=== PATIENT | male | born 1960 | race African-American/Black ===

== ENCOUNTER 2017-06-03 17:35 | Emergency (ER) | payer OTHER ==
[~2017-06-03] VITALS: Ht 172.7 cm; Wt 117.9 kg
[2017-06-03] MEDS ORDERED: ASPIRIN81 MG ORAL (17:52)
[2017-06-03] MEDS ORDERED: NORVASC10 MG ORAL (17:52)
[2017-06-03] MEDS ORDERED: Ketorolac 30mg Inj IM ONE (18:15)
[2017-06-03] MEDS ORDERED: IBUPROFEN600 MG ORAL (19:01)
[2017-06-03] MEDS ORDERED: ACETAMINOPHEN-1 EAC1 ORAL (19:01)
[2017-06-03 19:05] VITALS: BP 147/80
--- NOTE | 2017-06-03 21:16 | Emergency Room Report ---
History of Present Illness General Chief Complaint: Lower Extremity Injury Source: Patient Present Illness HPI Patient is a 57-year-old male presenting for right knee pain which began approximately 1 week prior for no known reason. He denies any injury. Pain is an 8 out of 10 throbbing sensation does not radiate. Worse with movement and touch. He has tried Aleve and Tylenol which somewhat helps. He denies any other symptoms including fever, chills, rash He denies history of gout Allergies: Coded Allergies: No Known Allergies (Unverified , 06/03/17) Patient History Past Medical History: see triage record Pertinent Family History: none Reviewed Nursing Documentation: PMH: Agreed; PSxH: Agreed Nursing Documentation-PMH Past Medical History: No History, Except For Hx Hypertension: Yes Review of Systems All Other Systems: negative except mentioned in HPI Physical Exam Vital Signs Date Time Temp Pulse Resp B/P (MAP) Pulse Ox O2 Delivery O2 Flow Rate FiO2 06/03/17 17:45 97.5 77 18 153/95 98 Room Air 97.5 Sp02 EP Interpretation: reviewed, normal General Appearance: no apparent distress, alert, GCS 15, non-toxic Head: normocephalic, atraumatic Eyes: bilateral eye normal inspection, bilateral eye PERRL ENT: hearing grossly normal, normal pharynx, no angioedema, normal voice Musculoskeletal: normal inspection, normal range of motion, no calf tenderness , tender - R medial knee Neurologic: alert, oriented x3, responsive, motor strength/tone normal, sensory intact, speech normal Psychiatric: judgement/insight normal, memory normal, mood/affect normal, no suicidal/homicidal ideation Skin: normal color, no rash, warm/dry, well hydrated Medical Decision Making PA Attestation Dr. Mratinez is my supervising physician. Patient management was discussed with my supervising physician Diagnostic Impression: Primary Impression: Knee pain, right Qualified Codes: M25.561 - Pain in right knee ER Course Patient is a 57-year-old male presenting for right knee pain which began approximately 1 week prior for no known reason Ddx considered include but not limited to sprain/strain, gout, fracture, contusion PE: NAD Right knee: Full active range of motion is intact. Normal gait. There is tenderness over the medial aspect. No deformity. No edema. Skin warm and dry Right knee x-ray is unremarkable Patient is given IM Toradol and pain has decreased He is discharged home with pain medications and will follow up with PMD. He is given rice instructions ER precautions given Other X-Ray Diagnostic Results Other X-Ray Diagnostic Results : X-Ray ordered: R knee # of Views/Limited Vs Complete: 3 View Indication: Pain EP Interpretation: Yes PA Xray: Interpretation reviewed, by supervising MD, and agrees with findings. Interpretation: no dislocation, no soft tissue swelling, no fractures Impression: No acute disease Electronically Signed by: Robe Lazo PA-C Last Vital Signs Date Time Temp Pulse Resp B/P (MAP) Pulse Ox O2 Delivery O2 Flow Rate FiO2 06/03/17 19:05 98.0 75 20 147/80 98 Room Air 98.0 Status: improved Disposition: HOME, SELF-CARE Condition: Improved Scripts Acetaminophen With Codeine (T#3) (TYLENOL #3 TAB*) Y Tab 1 TAB ORAL Q6HR PRN for For Pain, #10 TAB Prov: ROBE LAZO.AJeannine 06/03/17 Ibuprofen* (MOTRIN*) 600 Mg Tablet 600 MG ORAL Q8H PRN for For Pain, #30 TAB 0 Refills Prov: ROBE LAZO P.A. 06/03/17 Patient Instructions: Knee Pain Additional Instructions: I discussed my findings with the patient. All questions and concerns have been answered. Treatment and medication compliance have been addressed. I advised the patient that they need to follow up with PMD in 3-5 days. Return to ED if pain remains or worsens, numbness or tingling occurs, new rash is noticed, fever is noticed, or if needed for any reason. Patient verbalized understanding of discharge instructions. ROBE LAZO Jun 03, 2017 21:16
--- NOTE | 2017-06-04 09:28 | Diagnostic Imaging Report ---
Indication: Right knee pain Technique: Right knee 3 views Comparison: None Findings: There is no acute fracture or dislocation. There is mild anterior knee subcutaneous edema. There is mild suprapatellar fullness. Bone mineralization is normal. Impression: No acute osseous and amounted. Mild anterior knee subcutaneous edema. Suprapatellar fullness may be projectional but a small joint effusion cannot be excluded. Clinical correlation recommended.
== END 2017-06-03 19:05 | disposition home or self-care (01) ==
LOC: EMR 17:59
DX: M25.561 Pain in right knee (principal); I10 Essential (primary) hypertension
CPT/HCPCS: 73562; 96372; 99284; J1885